=== PATIENT | female | born 1995 | race Caucasian/White ===

== ENCOUNTER 2019-12-13 17:55 | Emergency (ER) | payer MEDICAID, OTHER ==
[~2019-12-13] VITALS: Ht 167 cm; Wt 55.0 kg
--- NOTE | 2019-12-13 18:15 | ED GU-Female ---
General Chief Complaint: Female Reproductive Stated Complaint: 6 WKS PREG & SPOTTING Source: patient Exam Limitations: no limitations History of Present Illness Date Seen by Provider: Dec 13, 2019 Time Seen by Provider: 18:10 Initial Comments Patient is a 24-year-old Ab1 LMP 27 October complaining of spotting today mild cramping no back pain no clots. Is concerned no other complaints Timing/Duration: this afternoon Severity/Quality: mild Location: vaginal Radiation: none Prior Genitourinary Problems: none Associated Symptoms: denies symptoms Allergies and Home Medications Patient Home Medication List Home Medication List Reviewed: Yes Review of Systems Review of Systems Constitutional: no symptoms reported EENTM: no symptoms reported Respiratory: no symptoms reported Cardiovascular: no symptoms reported Gastrointestinal: nausea, vomiting : Yes Expected Date of Delivery: Dec 13, 2019 Musculoskeletal: no symptoms reported Skin: no symptoms reported Past Wdnsblf-Yxotrn-Hzodke Hx Past Med/Social Hx: Reviewed Nursing Past Med/Soc Hx Physical Exam Vital Signs Vital Signs - First Documented 12/13/19 18:05 Temp 36.3 Pulse 90 Resp 18 B/P (MAP) 109/92 (98) Pulse Ox 96 O2 Delivery Room Air Capillary Refill : Height, Weight, BMI Height: '" Weight: lbs. oz. kg; BMI Method: General Appearance: WD/WN, no apparent distress HEENT: PERRL/EOMI Cardiovascular: normal peripheral pulses, regular rate, rhythm, no edema, no gallop Respiratory: chest non-tender, lungs clear, normal breath sounds Gastrointestinal: normal bowel sounds, non tender, soft, no organomegaly Pelvic: normal external exam, normal adnexa, no cerv. motion tender, no masses Back: normal inspection, no CVA tenderness Extremities: normal range of motion Neurologic/Psychiatric: conciliation court judge II-XII nml as tested Skin: normal color Procedures/Interventions Progress Bedside transabdominal ultrasound shows normal uterine size there is an intrauterine gestational sac with pole present no cardiac activity seen in the transabdominal view. There is no extra fluid no blood. There are no adnexal masses detected and no tenderness. Progress/Results/Core Measures Suspected Sepsis SIRS Temperature: Pulse: Respiratory Rate: Laboratory Tests 12/13/19 18:34: White Blood Count 4.1L Blood Pressure / Mean: Laboratory Tests 12/13/19 18:34: Platelet Count 189 Results/Orders Lab Results Laboratory Tests Test 12/13/19 18:10 12/13/19 18:34 Range/Units Urine Color DARK YELLOW Urine Clarity SL CLOUDY Urine pH 6.0 5-9 Urine Specific [place] >=1.030 1.016-1.022 Urine Protein NEGATIVE NEGATIVE Urine Glucose (UA) NEGATIVE NEGATIVE Urine Ketones TRACE H NEGATIVE Urine Nitrite NEGATIVE NEGATIVE Urine Bilirubin NEGATIVE NEGATIVE Urine Urobilinogen 1.0 < = 1.0 MG/DL Urine Leukocyte Esterase 1+ H NEGATIVE Urine RBC (Auto) 3+ H NEGATIVE Urine RBC 5-10 H /HPF Urine WBC 10-25 H /HPF Urine Squamous Epithelial Cells 25-50 H /HPF Urine Crystals NONE /LPF Urine Bacteria LARGE H /HPF Urine Casts NONE /LPF Urine Mucus LARGE H /LPF Urine Culture Indicated YES White Blood Count 4.1 L 4.3-11.0 10^3/uL Red Blood Count 3.85 L 4.35-5.85 10^6/uL Hemoglobin 11.5 11.5-16.0 G/DL Hematocrit 33 L 35-52 % Mean Corpuscular Volume 86 80-99 FL Mean Corpuscular Hemoglobin 30 25-34 PG Mean Corpuscular Hemoglobin Concent 35 32-36 G/DL Red Cell Distribution Width 11.5 10.0-14.5 % Platelet Count 189 130-400 10^3/uL Mean Platelet Volume 10.2 7.4-10.4 FL Immature Granulocyte % (Auto) 0 % Neutrophils (%) (Auto) 57 42-75 % Lymphocytes (%) (Auto) 33 12-44 % Monocytes (%) (Auto) 8 0-12 % Eosinophils (%) (Auto) 1 0-10 % Basophils (%) (Auto) 1 0-10 % Neutrophils # (Auto) 2.3 1.8-7.8 X 10^3 Lymphocytes # (Auto) 1.3 1.0-4.0 X 10^3 Monocytes # (Auto) 0.3 0.0-1.0 X 10^3 Eosinophils # (Auto) 0.1 0.0-0.3 10^3/uL Basophils # (Auto) 0.0 0.0-0.1 10^3/uL Immature Granulocyte # (Auto) 0.0 0.0-0.1 10^3/uL Neutrophils % (Manual) 50 % Lymphocytes % (Manual) 20 % Monocytes % (Manual) 8 % Eosinophils % (Manual) 2 % Basophils % (Manual) 0 % Band Neutrophils 10 % Atypical Lymphocytes 10 % Hypochromasia 1+ Human Chorionic Gonadotropin, Quant 62100 H <5 MIU/ML My Orders Orders - ROSITA SYKES DO Cbc And Manual Diff (12/13/19 18:17) Hcg,Quantitative (12/13/19 18:17) Urinalysis (12/13/19 18:17) Urine Culture (12/13/19 18:10) Vital Signs/I&O 12/13/19 12/13/19 18:05 19:23 Temp 36.3 36.3 Pulse 90 90 Resp 18 18 B/P (MAP) 109/92 (98) 109/92 (98) Pulse Ox 96 96 O2 Delivery Room Air Room Air Capillary Refill : Progress Note : Progress Note This is a 24-year-old Ab1 with spotting. Differential includes threatened AB UTI and vaginal discharge plan pelvic exam transabdominal ultrasound quantitative hCG and a urine evaluation Departure Impression Primary Impression: First trimester bleeding Disposition: 01 HOME, SELF-CARE Condition: Improved Departure-Patient Inst. Decision time for Depature: 19:26 Referrals: NAT TADEO MD (PCP/Family) Primary Care Physician Recheck next week return if bleeding increases or worsens Patient Instructions: Bleeding In Early ROSITA SYKES DO Dec 13, 2019 18:15
[2019-12-13 18:24] LABS: CLARITY,URINE SL CLOUDY; COLOR,URINE DARK YELLOW
[2019-12-13 18:25] LABS: BILIRUBIN,URINE NEGATIVE (NEGATIVE); GLUCOSE, URINE (UA) NEGATIVE (NEGATIVE); KETONES,URINE TRACE (NEGATIVE); LEUKOCYTE ESTERASE ,URINE 1+ (NEGATIVE); NITRITE,URINE NEGATIVE (NEGATIVE); PROTEIN,URINE NEGATIVE (NEGATIVE)
[2019-12-13 18:30] LABS: BACTERIA,URINE LARGE /HPF; SQUAMOUS EPITHELIAL CELL,UR 25-50 /HPF
[2019-12-13 19:07] LABS: BASOPHILS % (AUTO) 1 % (0-10); EOSINOPHILS % (AUTO) 1 % (0-10); HEMATOCRIT 33 % (35-52); HEMOGLOBIN 11.5 G/DL (11.5-16.0); LYMPHOCYTES # (AUTO) 1.3 X 10^3 (1.0-4.0); LYMPHOCYTES % (AUTO) 33 % (12-44); MEAN CORPUSCULAR HEMOGLOBIN 30 PG (25-34); MEAN CORPUSCULAR HGB CONC 35 G/DL (32-36); MEAN CORPUSCULAR VOLUME 86 FL (80-99); MEAN PLATELET VOLUME 10.2 FL (7.4-10.4); MONOCYTES % (AUTO) 8 % (0-12); NEUTROPHILS # (AUTO) 2.3 X 10^3 (1.8-7.8); NEUTROPHILS % (AUTO) 57 % (42-75); PLATELET COUNT 189 10^3/uL (130-400); WHITE BLOOD COUNT 4.1 10^3/uL (4.3-11.0)
[2019-12-13 19:08] LABS: ATYPICAL LYMPHOCYTES 10 %; BAND NEUTROPHILS 10 %; BASOPHILS % (MANUAL) 0 %; EOSINOPHILS # (AUTO) 0.1 10^3/uL (0.0-0.3); EOSINOPHILS % (MANUAL) 2 %; HYPOCHROMASIA 1+; LYMPHOCYTES % (MANUAL) 20 %; MONOCYTES # (AUTO) 0.3 X 10^3 (0.0-1.0); MONOCYTES % (MANUAL) 8 %; NEUTROPHILS % (MANUAL) 50 %
[2019-12-13 19:23] VITALS: BP 109/92
== END 2019-12-13 19:27 | disposition home or self-care (01) ==
LOC: ER FS 17:57
DX: O26.851 Spotting complicating pregnancy, first trimester (principal); Z3A.01 Less than 8 weeks gestation of pregnancy
CPT/HCPCS: 36415; 81000; 84702; 85007; 85027; 87088; 99284

== ENCOUNTER 2019-12-17 20:23 | Emergency (ER) | payer MEDICAID ==
[~2019-12-17] VITALS: Ht 167.7 cm; Wt 54.9 kg
[2019-12-17 20:35] VITALS: BP 122/64
--- NOTE | 2019-12-17 20:44 | ED Integumentary General ---
General Chief Complaint: Skin/Wound Problems Stated Complaint: VAGINAL BLEEDING CLOT,HIVES ON LEGS AND BACK Source: patient, RN/MD, RN notes reviewed, old records Exam Limitations: no limitations History of Present Illness Date Seen by Provider: Dec 17, 2019 Time Seen by Provider: 20:30 Initial Comments This patient is a 24-year-old female presents to the emergency department with complaint of hives. Patient states that be more on for 2 days and she doesn't kn ow what causes it. With your PCP today evaluation negative shift steroid injection. But has not improved the hives. Patient denies any significant itching or swelling. Denies allergies. Patient also states prior to arrival she did pass a portable blood per her vagina. Patient states she 7 weeks . Patient states she did see her [facility] today and had over 40,000 beta hCG level and did have a pelvic exam with her PCP. We did discuss at length with patient about options advised the patient that we do not have ultrasound available at this facility but be more than happy to do a medical evaluation and transfer [facility] for further evaluation by ultrasound needed. Patient states understanding but declines any medical evaluation. Patient states she does not believe she is having a miscarriage just denies upon. Patient denies cramping throughout I again advised the patient that we can offered full medical screening exam and lack of mobility including transferring to another facility for ultrasound if there are concerns patient again declines medical screening exam. She states that she will follow up in the [place] if symptoms failed to improve or worsen. Timing/Duration: yesterday Severity: mild Possible Cause: no cause identified Associated Symptoms: hives Allergies and Home Medications Patient Home Medication List Home Medication List Reviewed: Yes Review of Systems Review of Systems Constitutional: No no symptoms reported; see HPI; No chills, No diaphoresis, No dizziness, No fever, No malaise, No weakness, No weight gain, No weight loss, No other EENTM: No see HPI, No no symptoms reported, No ear discharge, No hearing loss, No ear pain, No blurred vision, No double vision, No eye pain, No tearing, No vision loss, No dental problems, No hoarseness, No mouth pain, No mouth swelling, No epistaxis, No nose congestion, No nose pain, No throat pain, No throat swelling, No other Respiratory: No no symptoms reported, No see HPI, No cough, No dyspnea on exertion, No hemoptysis, No orthopnea, No phlegm, No short of breath, No stridor, No wheezing, No other Cardiovascular: No no symptoms reported, No see HPI, No chest pain, No edema, No Hx of Intervention, No palpitations, No syncope, No vascular heart diseas, No other Gastrointestinal: No RUQ, No LUQ, No RLQ, No LLQ, No no symptoms reported, No see HPI, No abdominal pain, No constipation, No diarrhea, No dysphagia, No hematemesis, No heartburn, No jaundice, No loss of appetite, No melena, No nausea, No vomiting, No other Genitourinary: No no symptoms reported, No see HPI, No decreased output, No discharge, No dysuria, No frequency, No hematuria, No hesitancy, No incontinence, No nocturia, No pain, No other : Yes Musculoskeletal: No no symptoms reported, No see HPI, No back pain, No gout, No joint pain, No joint swelling, No muscle pain, No muscle stiffness, No muscle cramps, No muscle twitching, No muscle weakness, No neck pain, No other Skin: No no symptoms reported; see HPI; No change in color, No change in hair/nails, No dryness, No hx of skin cancer, No lesions, No lumps, No pruritus; rash; No other All Other Systems Reviewed Negative Unless Noted: Yes Past Ncdlygg-Gewhdx-Xphmzk Hx Patient Social History Type Used: Cigarettes 2nd Hand Smoke Exposure: No Recent Foreign Travel: No Contact w/Someone Who Travel: No Recent Hopitalizations: No Seasonal Allergies Seasonal Allergies: No Past Medical History Surgeries: No Respiratory: No Cardiac: No Neurological: No Genitourinary: No Gastrointestinal: No Musculoskeletal: No Endocrine: No HEENT: No Cancer: No Psychosocial: No Integumentary: No Blood Disorders: No Physical Exam Vital Signs Capillary Refill : General Appearance: WD/WN, no apparent distress Cardiovascular: normal peripheral pulses, regular rate, rhythm, no edema, no gallop, no JVD, no murmur Respiratory: chest non-tender, lungs clear, normal breath sounds, no respiratory distress, no accessory muscle use Gastrointestinal: normal bowel sounds, non tender, soft, no organomegaly, no pulsatile mass Extremities: normal range of motion, non-tender, normal inspection, no pedal edema, no calf tenderness, normal capillary refill, pelvis stable Skin: normal color, warm/dry, other (Hives) Lymphatic: no adenopathy Progress/Results/Core Measures Progress Progress Note : Time: 20:41 Progress Note Patient also states prior to arrival she did pass a portable blood per her vagina. Patient states she 7 weeks . Patient states she did see her [employer] [employer] [facility] today and had over 40,000 beta hCG level and did have a pelvic exam with her PCP. We did discuss at length with patient about options advised the patient that we do not have ultrasound available at this facility but be more than happy to do a medical evaluation and transfer [facility] to [facility] for further evaluation by ultrasound needed. Patient states understanding but declines any medical evaluation. Patient states she does not believe she is having a miscarriage just denies upon. Patient denies cramping throughout I again advised the patient that we can offered full medical scre ening exam and lack of mobility including transferring to another facility for ultrasound if there are concerns patient again declines medical screening exam. She states that she will follow up in the [place] if symptoms failed to improve or worsen. Pelvic rest as instructed. His symptoms. To improve on vaginal bleeding or any significant worsening he should presents to [facility] for [facility] your [employer] [employer] pelvic ultrasound. We'll give hydroxyzine in the emergency department for hives instructed to take 25 mg of Benadryl every 8 hours as needed for hives and itching. Follow-up with PCP in 2-3 days. Departure Impression Primary Impression: Hives Additional Impression: Vaginal bleeding affecting early Disposition: 01 HOME, SELF-CARE Condition: Stable Departure-Patient Inst. Decision time for Depature: 20:43 Referrals: NAT TADEO MD (PCP/Family) Primary Care Physician Patient Instructions: Hives (DC), Bleeding With (DC) Add. Discharge Instructions: Pelvic rest as instructed. His symptoms. To improve on vaginal bleeding or any significant worsening he should presents to drink [facility] for [facility] your [employer] pelvic ultrasound. We'll give hydroxyzine in the emergency department for hives instructed to take 25 mg of Benadryl every 8 hours as needed for hives and itching. Follow-up with PCP in 2-3 days. All discharge instructions reviewed with patient and/or family. Voiced understanding. JUDI CHRISTENSEN MD Dec 17, 2019 20:44
[2019-12-17] MEDS ORDERED: hydrOXYzine (VISTARIL/ATARAX) 25 MG capsule/tablet PO ONE (20:45)
[2019-12-17] MEDS ORDERED: hydrOXYzine (VISTARIL/ATARAX) 25 MG capsule/tablet ONE (20:46)
== END 2019-12-17 20:51 | disposition home or self-care (01) ==
LOC: EDUNIT# 20:23 → ER FS 20:25
DX: O20.9 Hemorrhage in early pregnancy, unspecified (principal); L50.9 Urticaria, unspecified; Z3A.01 Less than 8 weeks gestation of pregnancy
CPT/HCPCS: 99283